=== PATIENT | male | born 1990 | race Caucasian/White ===

== ENCOUNTER 2024-01-15 11:25 | Emergency (ER) | payer MEDICAID ==
[2024-01-15] MEDS: Ondansetron 4 MG/2 ML SDV IVPUSH ONE (11:58)
[2024-01-15 11:59] LABS: BASOPHILS ABSOLUTE AUTO 0.01 K/uL (0.00-0.20); BASOPHILS PERCENT AUTO 0.2 % (0.0-2.0); EOSINOPHILS ABSOLUTE AUTO 0.05 K/uL (0.00-0.50); EOSINOPHILS PERCENT AUTO 0.8 % (0.0-5.0); HEMATOCRIT 45.8 % (39.0-49.0); HEMOGLOBIN 15.8 g/dL (13.1-16.8); LYMPHOCYTES ABSOLUTE AUTO 1.35 K/uL (0.50-3.50); LYMPHOCYTES PERCENT AUTO 21.9 % (10.0-50.0); MEAN CORPUSCULAR HEMOGLOBIN 30.3 pg (28.2-33.3); MEAN CORPUSCULAR HGB CONC 34.5 g/dL (31.7-36.0); MEAN CORPUSCULAR VOLUME 87.7 fL (84.0-98.0); MONOCYTES PERCENT AUTO 6.5 % (2.0-14.0); NEUTROPHILS ABSOLUTE AUTO 4.36 K/uL (1.40-7.00); NEUTROPHILS PERCENT AUTO 70.6 % (45.0-80.0); PLATELET COUNT,PLT 206 K/uL (150-350); RED BLOOD CELL COUNT 5.22 M/uL (4.33-5.41); WHITE BLOOD CELL COUNT,WBC 6.2 K/uL (4.0-10.2)
[2024-01-15] MEDS: Lactated Ringers 1,000 ML IV ONE (12:02)
[2024-01-15] MEDS ORDERED: Sodium Chloride 0.9% 10 ML Syringe FLUSH PRN (12:07)
[2024-01-15 12:27] LABS: ALANINE AMINOTRANSFERASE,ALT 28 U/L (12-78); ALBUMIN 4.2 g/dL (3.4-5.0); ALKALINE PHOSPHATASE 94 IU/L (46-116); ANION GAP 11.1 meq/L (7-15); ASPARTATE AMNIOTRANSFERASE,AST 17 U/L (15-37); BILIRUBIN TOTAL 0.9 mg/dL (0.2-1.0); BLOOD UREA NITROGEN,BUN 19 mg/dL (7-18); CALCIUM 8.9 mg/dL (8.5-10.1); CARBON DIOXIDE,CO2 26.9 mmol/L (21.0-32.0); CHLORIDE,CL 102 mmol/L (98-107); CREATINE KINASE,CK 174 U/L (26-308); CREATININE 1.04 mg/dL (0.51-1.17); GLUCOSE RANDOM 126 mg/dL (70-99); POTASSIUM,K 3.8 mmol/L (3.5-5.1); PROTEIN TOTAL,TP 7.6 g/dL (6.4-8.2); SODIUM,NA 140 mmol/L (136-145)
[2024-01-15] MEDS: Tetracaine HCl/PF 0.5% 4 ML Bottle EYERT ONE ×3 (13:15→16:00)
[2024-01-15] MEDS: Tetracaine HCl/PF 0.5% 4 ML Bottle ONE (13:33)
[2024-01-15] MEDS: Gentamicin 0.3% Ophth Soln 5 ML Bottle EYERT SCH (13:35)
[2024-01-15 15:30] LABS: ESTIMATED GFR 98 mL/min (>=60)
[2024-01-15] MEDS ORDERED: Tetracaine HCl/PF 0.5% 4 ML Bottle EYERT PRN (19:41)
[2024-01-15] MEDS ORDERED: LORazepam 1 MG Tab PO PRN (20:01)
[2024-01-16 03:39] VITALS: BP 121/87; PULSE 80
== END 2024-01-16 04:00 | disposition home or self-care (01) ==
LOC: LL.ED 11:25
DX: H16.9 Unspecified keratitis (principal); F19.20 Other psychoactive substance dependence, uncomplicated; F17.210 Nicotine dependence, cigarettes, uncomplicated
CPT/HCPCS: 36415; 80053; 82550; 83690; 83735; 84484; 85025; 93005; 96361; 96374; 99284; A9270; J2405; J7120; J3490

== ENCOUNTER 2024-03-24 13:32 | Emergency (ER) | payer MEDICAID ==
[2024-03-24 14:15] LABS: BASOPHILS ABSOLUTE AUTO 0.02 K/uL (0.00-0.20); BASOPHILS PERCENT AUTO 0.2 % (0.0-2.0); EOSINOPHILS ABSOLUTE AUTO 0.03 K/uL (0.00-0.50); EOSINOPHILS PERCENT AUTO 0.3 % (0.0-5.0); HEMATOCRIT 43.4 % (39.0-49.0); HEMOGLOBIN 15.3 g/dL (13.1-16.8); LYMPHOCYTES ABSOLUTE AUTO 1.19 K/uL (0.50-3.50); LYMPHOCYTES PERCENT AUTO 12.4 % (10.0-50.0); MEAN CORPUSCULAR HEMOGLOBIN 30.8 pg (28.2-33.3); MEAN CORPUSCULAR HGB CONC 35.3 g/dL (31.7-36.0); MEAN CORPUSCULAR VOLUME 87.5 fL (84.0-98.0); MONOCYTES ABSOLUTE AUTO 0.64 K/uL (0.00-1.00); MONOCYTES PERCENT AUTO 6.7 % (2.0-14.0); NEUTROPHILS ABSOLUTE AUTO 7.71 K/uL (1.40-7.00); NEUTROPHILS PERCENT AUTO 80.4 % (45.0-80.0); PLATELET COUNT,PLT 236 K/uL (150-350); RED BLOOD CELL COUNT 4.96 M/uL (4.33-5.41); RED CELL DISTRIBUTION WIDTH 12.9 % (11.2-14.1); WHITE BLOOD CELL COUNT,WBC 9.6 K/uL (4.0-10.2)
[2024-03-24 14:34] LABS: ALANINE AMINOTRANSFERASE,ALT 29 U/L (12-78); ALBUMIN 4.5 g/dL (3.4-5.0); ALKALINE PHOSPHATASE 102 IU/L (46-116); ASPARTATE AMNIOTRANSFERASE,AST 22 U/L (15-37); BILIRUBIN TOTAL 0.6 mg/dL (0.2-1.0); BLOOD UREA NITROGEN,BUN 19 mg/dL (7-18); CALCIUM 9.4 mg/dL (8.5-10.1); CARBON DIOXIDE,CO2 29.7 mmol/L (21.0-32.0); CHLORIDE,CL 100 mmol/L (98-107); CREATININE 1.28 mg/dL (0.51-1.17); GLUCOSE RANDOM 106 mg/dL (70-99); PROTEIN TOTAL,TP 7.8 g/dL (6.4-8.2); SODIUM,NA 135 mmol/L (136-145)
[2024-03-24 14:35] LABS: ANION GAP 9.3 meq/L (7-15)
[2024-03-24 14:36] VITALS: BP 131/96; PULSE 102
[2024-03-24 14:36] LABS: ESTIMATED GFR 77 mL/min (>=60); ETHANOL BLOOD MEDICAL < 0.000 g/dL (0.000-0.080)
[2024-03-24 14:43] LABS: AMPHETAMINES SCREEN, URINE POSITIVE (NEGATIVE); BARBITURATE SCREEN,URINE NEGATIVE (NEGATIVE); BENZODIAZEPINES SCREEN,URINE NEGATIVE (NEGATIVE); COCAINE METABOLITES,URINE NEGATIVE (NEGATIVE); EDDP,URINE SCREEN NEGATIVE (NEGATIVE); METHAMPHETAMINES SCREEN, URINE POSITIVE (NEGATIVE); TCA SCREEN,URINE NEGATIVE (NEGATIVE); THC SCREEN,URINE 50 NG/ML POSITIVE (NEGATIVE)
[2024-03-24 14:45] LABS: BUPRENORPHINE SCREEN,URINE NEGATIVE (NEGATIVE); OXYCODONE SCREEN,URINE NEGATIVE (NEGATIVE)
[2024-03-24] MEDS: Acetaminophen 500 MG Tab PO ONE (15:05)
== END 2024-03-24 15:05 ==
LOC: LL.ED 13:32
DX: S02.2XXA Fracture of nasal bones, initial encounter for closed fracture (principal); S00.81XA Abrasion of other part of head, initial encounter; F16.10 Hallucinogen abuse, uncomplicated; M79.652 Pain in left thigh; F17.210 Nicotine dependence, cigarettes, uncomplicated; Y04.0XXA Assault by unarmed brawl or fight, initial encounter
CPT/HCPCS: 36415; 70450; 70486; 80053; 80305-QW; 80307; 85025; 99284; A9270-GY